=== PATIENT | female | born 2000 | race Asian ===

== ENCOUNTER 2020-07-13 11:49 | Emergency (ER) | payer BC ==
--- NOTE | 2020-07-13 12:01 | EDM.PDOC ---
ED HPI GENERAL MEDICAL PROBLEM - General Chief Complaint: Lower Extremity Injury/Pain Stated Complaint: SPRAINED ANKLE Time Seen by Provider: 07/13/20 12:01 Source of Information: Reports: Patient, RN, RN Notes Reviewed History Limitations: Reports: No Limitations - History of Present Illness INITIAL COMMENTS - FREE TEXT/NARRATIVE: Pt presents to ER with c/o left ankle pain and swelling sustained today while working at [employer]. Pt states she was at [employer] and simply rolled the left ankle. Stated she heard a "pop" but thought she just sprained it. Pt states she took 800mg Ibuprofen for pain, but it didn't help much, and the swelling caused her to come and get it checked out. Denies any other injury. No previous injury or fracture to the left ankle. 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 [No Known Home Meds] 07/13/20 [History] Past Medical History - Past Health History Medical/Surgical History: Denies Medical/Surgical History Social & Family History - Family History Family Medical History: Noncontributory - Living Situation & Occupation Living situation: Reports: with Significant Other Occupation: Employed Review of Systems - Review of Systems Review Of Systems: Comprehensive ROS is negative, except as noted in HPI. ED EXAM, GENERAL - Physical Exam Exam: See Below Exam Limited By: No Limitations General Appearance: Alert, WD/WN, No Apparent Distress Cardiovascular: Normal Peripheral Pulses Peripheral Pulses: 3+: Posterior Tibial (L), Posterior Tibial (R), Dorsalis Pedis (L), Dorsalis Pedis (R) Back Exam: Normal Inspection Extremities: Other (Left ankle with generalized swelling and tenderness, skin intact. ROM limited due to pain.) Neurological: Alert, Oriented, No Motor/Sensory Deficits Psychiatric: Normal Mood Skin Exam: Warm, Dry, Intact, Normal Color, No Rash ED TRAUMA EXTREMITY PROCEDURES - Splinting Left Lower Extremity Splint Site: Left lower leg/ankle Pre-Procedure NV Status: Normal Post-Procedure NV Status: Normal Splint Material: Fiberglass (with extra padding of ankle) Splint Design: Sugar Tong, Posterior Applied & Form Fitted By: Nurse Provider Post-Splint Application NV Check: NV Status Normal, Good Position Complications: No Course - Vital Signs Last Recorded V/S: Last Vital Signs Temp 98.0 F 07/13/20 12:03 Pulse 80 07/13/20 12:03 Resp 16 07/13/20 12:03 BP 113/63 07/13/20 12:03 Pulse Ox - Orders/Labs/Meds Orders: Active Orders 24 hr Category Date Time Status Splinting [RC] ASDIRECTED Care 07/13/20 12:36 Active DME for Discharge [COMM] Routine Oth 07/13/20 12:36 Ordered Meds: Medications Discontinued Medications Generic Name Dose Route Start Last Admin Trade Name Freq PRN Reason Stop Dose Admin Hydrocodone Bitart/Acetaminophen 1 tab 07/13/20 12:36 07/13/20 12:48 [place] 325-10 Mg PO 07/13/20 12:37 1 tab ONETIME ONE Administration - Radiology Interpretation Free Text/Narrative:: [facility] Final Radiology Report Call: [phone] assistance Online chat: [email or web address] Name: GONZALO CA Age: 20Years F Date: 07/13/2020 SSN: -- : [id number] Study: CR ANKLE MIN 3V LT Requesting Physician: YOJANA LUTZ Images: 3 Addl Studies: Provided Clinical History: Left ankle injury Contrast: Contrast Medium: Contrast Amount: Contrast Method: CONFIDENTIALITY STATEMENT This report is intended only for use by the referring physician, and only in accordance with law. If you received this in error, call [phone]. Page 1 of 1 PROCEDURE INFORMATION: Exam: XR Left Ankle Exam date and time: 07/13/2020 12:16 PM Age: 20 years old Clinical indication: Injury or trauma; Fall; Work related; Initial encounter; Swelling (edema); Ankle; Left; Injury date: Today; Additional info: Left ankle injury TECHNIQUE: Imaging protocol: XR Left ankle. Views: 3 or more views. COMPARISON: No relevant prior studies available. FINDINGS: Bones/joints: A trimalleolar fracture with joint subluxation involves the left ankle. The talus is posteriorly and laterally subluxed with widening of the medial ankle clear spa ce. A spiral fracture of the distal fibular diametaphysis has approximately 2 mm medial displacement of the distal fracture fragment on the AP view. The medial malleolar fracture is approximately 4 mm displaced as measured on the oblique view. A fracture through the posterior malleolus has approximately 2 mm impaction. There is a small plantar calcaneal enthesophyte. Soft tissues: Severe soft tissue swelling involves the ankle. IMPRESSION: Severe trimalleolar fracture of the left ankle with posterior and lateral subluxation of the talus. Thank you for allowing us to participate in the care of your patient. Dictated and Authenticated by: Agatha Estevez MD 07/13/2020 12:43 PM Central Time ([place] & [place]) - Re-Assessments/Exams Free Text/Narrative Re-Assessment/Exam: 07/13/20 13:26 I consulted orthopedic surg. via [facility], and reviewed the case with Dr. Toussaint. He agrees to see the pt in clinic on . 07/17/20. Departure - Departure Time of Disposition: 13:23 Disposition: Home, Self-Care 01 Condition: Good Clinical Impression: Closed trimalleolar fracture of left ankle Qualifiers: Encounter type: initial encounter Qualified Code(s): S82.852A - Displaced trimalleolar fracture of left lower leg, initial encounter for closed fracture - Discharge Information *PRESCRIPTION DRUG MONITORING PROGRAM REVIEWED*: No *COPY OF PRESCRIPTION DRUG MONITORING REPORT IN PATIENT ROSHAN: No Instructions: Ankle Fracture, Displaced Trimalleolar Ankle Fracture Treated With ORIF Forms: ED Department Discharge Additional Instructions: Rx: Hydrocodone APAP 5mg/325mg No weight bearing on left foot. Use crutches. Do not remove splint. Rest, elevate and ice packs to left ankle. Call [phone] today to schedule an appointment with Dr. Toussaint at [facility] on . Go to the nearest ER if any further concerns, such and cold or discoloration of the left foot or toes, or uncontrolled pain. Sepsis Event Note (ED) - Focused Exam Vital Signs: Vital Signs Temp Pulse Resp BP 07/13/20 12:03 98.0 F 80 16 113/63 - My Orders Last 24 Hours: My Active Orders 07/13/20 12:36 Splinting [RC] ASDIRECTED DME for Discharge [COMM] Routine - Assessment/Plan Last 24 Hours: My Active Orders 07/13/20 12:36 Splinting [RC] ASDIRECTED DME for Discharge [COMM] Routine
[2020-07-13] MEDS ORDERED: Acetaminophen/HYDROcodone 325-10 MG Tab PO ONE (12:36)
--- NOTE | 2020-07-13 12:43 | CR ---
PROCEDURE INFORMATION: Exam: XR Left Ankle Exam date and time: 07/13/2020 12:16 PM Age: 20 years old Clinical indication: Injury or trauma; Fall; Work related; Initial encounter; Swelling (edema); Ankle; Left; Injury date: Today; Additional info: Left ankle injury TECHNIQUE: Imaging protocol: XR Left ankle. Views: 3 or more views. COMPARISON: No relevant prior studies available. FINDINGS: Bones/joints: A trimalleolar fracture with joint subluxation involves the left ankle. The talus is posteriorly and laterally subluxed with widening of the medial ankle clear space. A spiral fracture of the distal fibular diametaphysis has approximately 2 mm medial displacement of the distal fracture fragment on the AP view. The medial malleolar fracture is approximately 4 mm displaced as measured on the oblique view. A fracture through the posterior malleolus has approximately 2 mm impaction. There is a small plantar calcaneal enthesophyte. Soft tissues: Severe soft tissue swelling involves the ankle. IMPRESSION: Severe trimalleolar fracture of the left ankle with posterior and lateral subluxation of the talus.
== END 2020-07-13 13:37 | disposition home or self-care (01) ==
LOC: DL.ED 11:49
DX: S82.852A Displaced trimalleolar fracture of left lower leg, initial encounter for closed fracture (principal); X50.9XXA Other and unspecified overexertion or strenuous movements or postures, initial encounter
CPT/HCPCS: 29515; 73610; 99283; A9270